=== PATIENT | male | born 1995 | race African-American/Black ===

== ENCOUNTER 2018-02-10 20:39 | Emergency (ER) | payer OTHER ==
[~2018-02-10] VITALS: Ht 170.2 cm; Wt 59.0 kg
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
[2018-02-10] MEDS ORDERED: IBUPROFEN600 MG ORAL (21:48)
[2018-02-10 22:00] VITALS: BP 127/77
--- NOTE | 2018-02-11 09:48 | Diagnostic Imaging Report ---
Indication: Pain Technique: 2 views of the right tibia and fibula Comparison: none Findings: No acute fractures. No dislocations. Impression: Negative
== END 2018-02-10 22:00 | disposition home or self-care (01) ==
LOC: EMR 21:19
DX: S89.81XA Other specified injuries of right lower leg, initial encounter (principal); V03.99XA Pedestrian with other conveyance injured in collision with car, pick-up truck or van, unspecified whether traffic or nontraffic accident, initial encounter; Y92.410 Unspecified street and highway as the place of occurrence of the external cause
CPT/HCPCS: 99283